=== PATIENT | female | born 1970 | race Caucasian/White ===

== ENCOUNTER 2017-06-08 22:31 | Emergency (ER) | payer OTHER, SELFPAY ==
[2017-06-08 22:31] VITALS: BMI 20.7
[2017-06-08 23:40] VITALS: BP 126/84; PULSE 90; RESP 20; TEMP 98.3; O2SAT 99
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
--- NOTE | 2017-06-09 15:15 | RAD ---
PROCEDURE: Radiographs of the Left Shoulder HISTORY: r/o fx COMPARISON: No prior. FINDINGS: BONES: No acute fracture or destructive bony lesion identified. JOINTS: Unremarkable. Glenohumeral and acromioclavicular joints preserved. No osteoarthritis. SOFT TISSUES: Unremarkable OTHER FINDINGS: None. IMPRESSION: Unremarkable radiographs of the left shoulder.
== END 2017-06-09 01:39 | disposition home or self-care (01) ==
LOC: C.ER 22:31
DX: S46.912A Strain of unspecified muscle, fascia and tendon at shoulder and upper arm level, left arm, initial encounter (principal); V49.9XXA Car occupant (driver) (passenger) injured in unspecified traffic accident, initial encounter